=== PATIENT | female | born 1950 | race Caucasian/White ===

== ENCOUNTER → 2022-11-07 | Day surgery (SDC) | payer OTHER ==
--- NOTE | 2022-11-07 12:06 | RAD REPORT ---
EXAM DESCRIPTION: US - BREAST/AXILLA, LIMITED - 11/07/2022 11:11 am CLINICAL HISTORY: R92.8, N83.21, Z85.06 COMPARISON: No comparisons FINDINGS: The patient was referred for left breast core biopsy. On pre-procedure sonography performed by attending radiologist, the area of interest although appeari ng slightly prominent relative to surrounding parenchyma was difficult to definitively characterize a s a discrete mass. It may represent a mass that is surrounded by prominent tissue or simply a focal p rominent area of normal tissue. In any event, the finding is equivocal and further imaging is recomme nded with MRI breasts for problem solving purposes. IMPRESSION: Indeterminate left breast mammographic and sonographic findings for malignancy. Area of interest in the left breast is difficult to discretely visualize as a mass with certainty on pre-proc edure/pre biopsy ultrasound performed by attending radiologist. For this reason, it is recommended th at the patient undergo MRI breasts with contrast for problem solving purposes. Findings and plan of care were discussed in person by attending radiologist with the patient who agre ed with the plan. BI-RAD: 0, incomplete. MRI breasts is recommended. ResultCode: I
== END ==
LOC: DS 09:13
PROVIDERS: ATTEND Physician Assistant
DX: R92.8 Other abnormal and inconclusive findings on diagnostic imaging of breast (principal); N63.21 Unspecified lump in the left breast, upper outer quadrant; Z85.05 Personal history of malignant neoplasm of liver; Z53.8 Procedure and treatment not carried out for other reasons
CPT/HCPCS: 76642